=== PATIENT | female | born 1980 | race Caucasian/White ===

== ENCOUNTER 2020-08-20 11:25 | Outpatient (CLI) | payer BC ==
[2020-08-20] MEDS ORDERED: LIDOCAINE SOLN 4% 50 ML BOTTLE ONE (11:50)
[2020-08-20] MEDS ORDERED: SILVER SULFADIAZINE CREAM 25 GM TUBE ONE ×2 (12:26)
== END 2020-08-20 23:59 | disposition home or self-care (01) ==
LOC: WOU 11:25
PROVIDERS: ATTEND Specialist
DX: T22.232D Burn of second degree of left upper arm, subsequent encounter (principal); T22.252D Burn of second degree of left shoulder, subsequent encounter; T23.102D Burn of first degree of left hand, unspecified site, subsequent encounter; T22.112D Burn of first degree of left forearm, subsequent encounter; X08.8XXD Exposure to other specified smoke, fire and flames, subsequent encounter; T31.0 Burns involving less than 10% of body surface; I10 Essential (primary) hypertension; E78.5 Hyperlipidemia, unspecified
CPT/HCPCS: G0463

== ENCOUNTER 2020-08-27 09:02 | Outpatient (CLI) | payer BC ==
[2020-08-27] MEDS ORDERED: LIDOCAINE SOLN 4% 50 ML BOTTLE ONE ×2 (09:08→11:56)
[2020-08-27] MEDS ORDERED: SILVER SULFADIAZINE CREAM 25 GM TUBE ONE (09:32)
[2020-08-27] MEDS ORDERED: COLLAGENASE 5 GM TUBE UD TP ONE (09:33)
== END 2020-08-27 23:59 | disposition home or self-care (01) ==
LOC: WOU 09:02
PROVIDERS: ATTEND Specialist
DX: T22.252D Burn of second degree of left shoulder, subsequent encounter (principal); T22.232D Burn of second degree of left upper arm, subsequent encounter; T22.112D Burn of first degree of left forearm, subsequent encounter; T23.102D Burn of first degree of left hand, unspecified site, subsequent encounter; X03.0XXD Exposure to flames in controlled fire, not in building or structure, subsequent encounter; E78.5 Hyperlipidemia, unspecified
CPT/HCPCS: G0463